=== PATIENT | female | born 1940 | race Caucasian/White ===

== ENCOUNTER 2017-06-12 11:17 | Outpatient (CLI) | payer MEDICARE ==
--- NOTE | 2017-06-12 14:23 | RAD ---
FRONTAL AND LATERAL IMAGING OF THE CHEST 06/12/17. COMPARISON: 02/12/17. HISTORY: Dyspnea. FINDINGS: There are increased linear interstitial densities in the perihilar regions as well as the peripheral aspects of the mid lung zones and bilateral lung bases, similar when compared to the 02/12/17 exam, sug gesting chronic underlying interstitial disease. There is blunting of the costophrenic angle on the right and increased density in the right lung base, best seen on the lateral examination with increas ed density in the right costophrenic angle posteriorly. The density within the right lung base appea rs to have increased since the prior exam which may signify small increasing right-sided pleural effu jose. There is a tiny apical pneumothorax on the right, similar when compared to prior imaging. IMPRESSION: 1. There is chronic interstitial prominence, grossly unchanged. 2. There is increasing density in the right lung base suggesting enlarging small right pleural effus ion. 3. Findings suggesting a tiny residual apical pneumothorax on the right. CODE T-Dr. Dejesus made aware at the time of dictation. POS: NOAM
== END 2017-06-12 11:18 | disposition home or self-care (01) ==
LOC: RAD 11:17
PROVIDERS: ATTEND Internal Medicine Critical Care Medicine
DX: R06.00 Dyspnea, unspecified (principal); J98.4 Other disorders of lung; R91.8 Other nonspecific abnormal finding of lung field
CPT/HCPCS: 71020

== ENCOUNTER 2017-08-05 12:30 | Outpatient (CLI) | payer MEDICARE | END 2017-08-05 12:31 | disposition home or self-care (01) | LOC: BICRAD 12:30 | PROVIDERS: ATTEND Internal Medicine | DX: R06.00 Dyspnea, unspecified (principal) | CPT/HCPCS: 71046 ==

== ENCOUNTER 2017-08-15 12:55 | Outpatient (CLI) | payer MEDICARE | END 2017-08-15 12:56 | disposition home or self-care (01) | LOC: BICRAD 12:55 | PROVIDERS: ATTEND Internal Medicine | DX: R07.81 Pleurodynia (principal) ==

== ENCOUNTER 2017-09-01 08:58 | Outpatient (CLI) | payer MEDICARE ==
--- NOTE | 2017-09-01 15:45 | NM ---
WHOLE BODY BONE SCAN: Date: 09/01/17 HISTORY: Malignant neoplasm right lung. Patient reports lobectomy right lung. Patient has persistent right-dione ed rib pain. COMPARISON: Bone scan on 06/21/08. FINDINGS: There is mild increased asymmetric uptake of radiotracer seen within the right shoulder and in the ri ght knee in a degenerative pattern. There is a focus of faint increased uptake seen within the anteri or right lower rib ending. This may be related to prior injury. Intensity is usually greater for a me tastatic lesion, and no additional abnormal focal areas of uptake of radiotracer are seen to suggest metastatic disease as an etiology. There is mild S-shaped scoliotic curvature of the thoracolumbar sp ine. Normal uptake is seen within the kidneys and in the region of the urinary bladder. IMPRESSION: 1. Degenerative changes right shoulder and right knee. 2. Small faint focus of increased uptake of activity within a right lower anterior rib ending, which could be related to prior injury. Intensity is less than typically expected for a metastatic lesion. There are no findings to suggest osseous metastatic disease. POS: NOAM
== END 2017-09-01 08:59 | disposition home or self-care (01) ==
LOC: NM 08:58
PROVIDERS: ATTEND Internal Medicine
DX: C34.90 Malignant neoplasm of unspecified part of unspecified bronchus or lung (principal); G89.3 Neoplasm related pain (acute) (chronic); R07.9 Chest pain, unspecified; M17.11 Unilateral primary osteoarthritis, right knee; M19.011 Primary osteoarthritis, right shoulder
CPT/HCPCS: 78306; A9503

== ENCOUNTER 2017-10-28 09:21 | Outpatient (CLI) | payer MEDICARE ==
--- NOTE | 2017-10-28 10:42 | RAD ---
PA AND LATERAL VIEWS CHEST: HISTORY: Cough. Hemoptysis. COMPARISON: 11/03/2016 FINDINGS: The heart size is borderline. The aorta is tortuous. Chronic interstitial changes are seen. No lob ar consolidation, pneumothoraces, or large effusions are identified. IMPRESSION: No acute process. POS: [facility]
== END 2017-10-28 09:22 | disposition home or self-care (01) ==
LOC: SCSRAD 09:21
PROVIDERS: ATTEND Internal Medicine
DX: R04.2 Hemoptysis (principal); J20.9 Acute bronchitis, unspecified; R06.00 Dyspnea, unspecified
CPT/HCPCS: 71046

== ENCOUNTER 2017-12-05 09:19 | Outpatient (CLI) | payer MEDICARE ==
--- NOTE | 2017-12-05 10:44 | RAD ---
PA AND LATERAL VIEWS OF CHEST: Date: 12/05/17 HISTORY: Dyspnea. FINDINGS/IMPRESSION: Comparison made with exam of 10/28/17. The heart size is normal. Chronic changes in the lung garcia are again seen. There is continued eleva tion of the right hemidiaphragm. There is increased density in the right suprahilar region. The possi bility of a mass should be considered. No pneumothoraces or pleural effusions are identified. Further evaluation with CT scan is recommended. CODE T. POS: [facility]
== END 2017-12-05 09:20 | disposition home or self-care (01) ==
LOC: RAD 09:19
PROVIDERS: ATTEND Internal Medicine Critical Care Medicine
DX: R06.00 Dyspnea, unspecified (principal)
CPT/HCPCS: 71046

== ENCOUNTER 2018-01-20 10:10 | Outpatient (CLI) | payer MEDICARE ==
--- NOTE | 2018-01-20 10:50 | RAD ---
TWO VIEWS OF THE CHEST: COMPARISON: 10/28/17. HISTORY: Dyspnea. FINDINGS: Two views of the chest show an enlarged but stable cardiomediastinal silhouette. Increased interstit ial lung markings are present. There are areas of airspace opacity in the right suprahilar region an d in the left lower lobe. No pleural effusion is seen. IMPRESSION: 1. Persistent airspace opacity in the right suprahilar region. A mass must be excluded. A CT of th e chest is recommended for further evaluation. 2. Possible new left lower lobe infiltrate. CODE T POS: [facility]
== END 2018-01-20 10:11 | disposition home or self-care (01) ==
LOC: RAD 10:10
PROVIDERS: ATTEND Internal Medicine Critical Care Medicine
DX: R06.00 Dyspnea, unspecified (principal); R91.8 Other nonspecific abnormal finding of lung field
CPT/HCPCS: 71046

== ENCOUNTER 2018-01-29 12:46 | Inpatient (IN) | payer MEDICARE ==
[2018-01-29 13:13] LABS: #Lymphocytes 0.8 thou/uL (1.20-3.40); #Monocytes 0.6 thou/uL (0.11-0.59); #Neutrophils 7.3 thou/uL (1.40-6.50); %Basophils 0.2 % (0.0-1.0); %Eosinophils 0.4 % (0.0-10.0); %Monocytes 6.6 % (0.0-10.0); %Neutrophils 83.9 % (42.0-75.0); Hemoglobin 12.1 g/dL (12.0-16.0); Mean Corpuscular Hemoglobin 30.9 pg (27.0-31.0); Mean Corpuscular Volume 93.7 fL (78.0-98.0); Mean Platelet Volume 7.1 fL (7.4-10.4); Platelet Count 257 thou/uL (130-400); RBC Distribution Width 13.9 % (11.5-14.5); White Blood Cell (WBC) Count 8.7 thou/uL (4.8-10.8)
[2018-01-29 13:37] LABS: CKMB 5.3 ng/mL (0-6.6)
[2018-01-29 13:48] LABS: Troponin I 1.185 ng/mL (< 0.028)
--- NOTE | 2018-01-29 13:51 | RAD ---
CHEST ONE VIEW: HISTORY: Cough. COMPARISON: 01/20/2018 FINDINGS: There are abnormal opacities in the left lower lobe and right upper lobe. This is similar to the [facility] examination. There is low grade dextroscoliosis. The aortic contour is similar. IMPRESSION: Air space opacities in the left lower lobe and right upper lobe. These are similar to slightly worse rosmery. A multifocal abnormality is a possibility. A right upper lobe mass is also possible. Recommen d correlation with CT. POS: NOAM
[2018-01-29] MEDS ORDERED: methylPREDNISolone Sod Succ/PF 125 MG/2 ML VIAL ONE (14:05)
[2018-01-29] MEDS ORDERED: Magnesium Sulfate 2 GM in Sodium Chloride 0.9% 100 ML IVPB SCH (14:15)
[2018-01-29 14:25] LABS: ALT (SGPT) 762 U/L (8-55); AST (SGOT) 1365 U/L (5-34); Albumin 3.4 g/dL (3.4-4.8); Alkaline Phosphatase 98 U/L (40-150); Anion Gap 13 mmol/L (10-20); BUN (Urea Nitrogen) 20 mg/dL (9.8-20.1); Bilirubin, Total 0.6 mg/dL (0.2-1.2); CK (CPK) 305 U/L (29-168); Calc. Creatinine Clearance 0 mL/min (70-130); Calcium 8.5 mg/dL (7.8-10.44); Carbon Dioxide 22 mmol/L (23-31); Chloride 107 mmol/L (98-107); Estimated GFR-MDRD 42; Globulin 2.7 g/dL (2.4-3.5); Glucose 110 mg/dL (83-110); Potassium 4.5 mmol/L (3.5-5.1); Protein, Total 6.1 g/dL (6.0-8.3); Sodium 137 mmol/L (136-145)
[2018-01-29 14:56] LABS: Bilirubin Small (Negative); Blood, Urine Negative (Negative); Clarity CLEAR (Clear); Glucose, Urine (Dipstick) Negative (Negative); Leukocyte Negative (Negative); Nitrite Negative (Negative); Protein, Urine (Dipstick) Negative (Neg-Trace); Specific Gravity, Urine 1.044 (1.002-1.036); pH, Urine 5.5 (5.0-9.0)
[2018-01-29 17:00] LABS: Critical Call Chem Troponin I RESULT DECREASING; Troponin I 0.716 ng/mL (< 0.028)
[2018-01-29 17:55] VITALS: BMI 28.6
[2018-01-29] MEDS ORDERED: Guaifenesin DM 100-10/5 ML UDCUP PO PRN (18:02)
[2018-01-29] MEDS ORDERED: HYDROcodone/Acetaminophen 5/325 mg Tablet PO PRN (18:02)
--- NOTE | 2018-01-29 18:37 | HP ---
DATE OF ADMISSION: 01/29/2018 CHIEF COMPLAINT: Weakness and shortness of breath. HISTORY OF PRESENT ILLNESS: This is a 77-year-old white female with a known history of adenocarcinom a of the right lung and had a lower lobe resection in 10/2016 and has been closely following up with Dr. Dejesus. The patient has recently been noticing that she has been getting weaker and weaker since last August wherein she was admitted for pneumonia. Following discharge, the patient was getting w eaker and she has been having close followup with Dr. Dejesus, who had a recent CT with IV contrast. C T chest with IV contrast, which did show an evidence of a new growth from the old malignancy. The jamee alexandre was scheduled for a PET scan later next week, but during this time she is getting weaker and wa s having severe shortness of breath, and she was brought to the ER. When the patient presented to e ER, she had saturations in 80s and her blood pressures were in 88. So, the patient was given 1 lit er of IV fluid bolus and she was given nebulizer treatments, which did help her a little bit. Her re spirations rate improved and she was saturating 90% on 2 liters. She does complain of chest pain a f ew days ago, which she ignored it as a gas pain. She complains of pain on the mid epigastric area go ing toward the sternum. She denies having any nausea or vomiting, diarrhea or constipation. She den ies having any loss of appetite or any loss of weight. She denies having any constipation, no diarrh ea. PAST MEDICAL HISTORY: 1. Gastroesophageal reflux disease. 2. Degenerative joint disease. 3. Hyperlipidemia. 4. History of atrial fibrillation. 5. 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 PAST SURGICAL HISTORY: 1. Bilateral cataract surgery. 2. Appendectomy. 3. Tonsillectomy. 4. Recent right lower lobectomy. HOME MEDICATIONS: Have been reconciled. Please see the medication list. ALLERGIES: CODEINE, AMOXICILLIN, LASIX, and LYRICA. SOCIAL HISTORY: The patient is a former cigarette smoker. She drinks a cup of coffee a day. She li ves with her daughter. REVIEW OF SYSTEMS: All 12 systems are reviewed with the patient thoroughly and found to be negative at this time except the ones described in HPI. The following complete review of systems was negative , unless otherwise mentioned in the HPI or below: Constitutional: Weight loss or gain, sense of wel l-being, ability to conduct usual activities, exercise tolerance. Skin/Breast: Rash, itching, sarkar es in hair growth or loss, nail changes, breast lumps, tenderness, swelling, nipple discharge. Eyes: Vision, double vision, tearing, blind spots, pain. ENT/Mouth: Headaches (location, time of onset, duration, precipitating factors), vertigo, lightheadedness, injury. Vision, double vision, tearing, blind spots, pain, nose bleeding, colds, obstruction, discharge, dental difficulties, gingival bleedi ng, dentures, neck stiffness, pain, tenderness, masses in thyroid or other areas. Cardiovascular: P recordial pain, substernal distress, palpitations, syncope, dyspnea on exertion, orthopnea, nocturnal paroxysmal dyspnea, edema, cyanosis, hypertension, heart murmurs, varicosities, phlebitis, claudicat ion. Respiratory: Pain, shortness of breath, wheezing, stridor, cough, hemoptysis, fever or night s weats. Gastrointestinal: Poor appetite, dysphagia, indigestion, abdominal pain, heartburn, eructati on, nausea, vomiting, hematemesis, jaundice, constipation, or diarrhea, abnormal stools (renu-colored , tarry, bloody, greasy, foul smelling), flatulence, hemorrhoids, recent changes in bowel habits. Ge nitourinary: Urgency, frequency, dysuria, nocturia, hematuria, polyuria, oliguria, unusual (or sarkar e in) color of urine, stones, hesitancy, change in size of stream, dribbling, acute retention or inco ntinence, libido, potency. Musculoskeletal: Pain, swelling, redness or heat of muscles or joints, l imitation, of motion, muscular weakness, atrophy, cramps. Neurologic/Psychiatric: Convulsions, para lyses, tremor, incoordination, paresthesias, difficulties with memory of speech, sensory or motor dis turbances, or muscular coordination (ataxia, tremor), emotional problems, anxiety, depression, previo us psychiatric care, unusual perceptions, hallucinations. Allergy/Immunologic: Skin rash, anemia, b leeding tendency, polydipsia, polyuria, intolerance to heat or cold. PHYSICAL EXAMINATION: VITAL SIGNS: Blood pressures are 110/88, heart rate is 88, respiratory rate is 18, saturation is 90% on 2 liters nasal cannula. GENERAL: The patient is moderately built and moderately nourished. She does not appear to be in acu te distress at this time. She is seen lying in the bed supine. HEENT: Atraumatic, normocephalic. PERRLA, extraocular muscles were intact. Oral mucosa is pink and moist. CARDIOVASCULAR: S1, S2 normal. No murmurs, rubs or gallops. LUNGS: Bilateral air entry was equal. No wheezing, no crackles. ABDOMEN: Soft, nontender. No guarding, no rebound tenderness. Bowel sounds are normal. MUSCULOSKELETAL: No calf tenderness. No pedal edema. No joint tenderness, no joint swelling. SKIN: No cyanosis, no erythema, no rash. Pallor was noted. PSYCHIATRIC: No signs of suicidal ideation. No signs of burak. [employer]: Cranial nerve examination II-XII intact. No focal deficits were noted at this time. LABORATORY DATA AND IMAGING: Sodium 137, potassium 4.5, chloride is 107, bicarbonate is 22, BUN is 2 0, creatinine 1.24. Blood sugar 110, AST 1365, ALT 762, troponin 1.185. BNP is 964. WBC 8.7, hemog lobin is 12.1, hematocrit is 36.6, platelets are 257. Chest x-ray was showing an airspace opacity in the left lower lobe and the right upper lobe. These are similar slightly worsened multifocal abnorm alities possibility. ASSESSMENT: 1. Acute hypoxic respiratory failure. 2. Acute congestive heart failure, likely diastolic dysfunction. 3. Non ST-elevation myocardial infarction. 4. History of adenocarcinoma of the right lower lobe, possible recurrence. 5. Generalized weakness and lethargy. 6. Elevated liver enzymes. PLAN: 1. Plan is to closely monitor this patient at this time. We will continue with the nebulizer treatm ents as needed and DuoNebs every 4 hours scheduled. Pulmonary has been consulted. We will wait for their recommendations at this time. The patient do not have any evidence of pneumonia at this time, so I would not start any antibiotics unless Pulmonary would want to at this time. 2. The patient has evidence of regrowth of the adenocarcinoma and Dr. Dejesus has been following. The patient has a pending PET scan later next week. 3. The patient has elevated troponins, most likely this could be a demand ischemia, but the patient has elevated BNP which is suggestive of congestive heart failure. So, we will get a 2D echo to look for any evidence of wall motion abnormality. We will start the patient on aspirin and beta blockers and evaluate cardiac causes for her weakness and lethargy. 4. The patient has markedly elevated liver enzymes with a normal alkaline phosphatase, possibly sugg estive of possible metastatic lesions. So, we will get an ultrasound of the abdomen to look for any masses on the liver. 5. DVT prophylaxis. The patient is on Xarelto. 6. The patient has history of atrial fibrillation. We will continue with anticoagulation at this ti me. I spent 75 minutes with this patient.
[2018-01-29 20:03] LABS: Troponin I 0.746 ng/mL (< 0.028)
[2018-01-29] MEDS ORDERED: Carvedilol 3.125 MG TAB PO SCH (21:00)
[2018-01-29] MEDS: Gabapentin 300 MG CAP PO SCH (21:34)
[2018-01-29] MEDS: Famotidine/PF 20 mg/2ml Vial SLOW IVP SCH (21:34)
[2018-01-29] MEDS: Sotalol HCl 80 MG TAB PO SCH (21:34)
[2018-01-29] MEDS: Docusate 100 MG CAP PO SCH (21:34)
[2018-01-29] MEDS: Apixaban 5 MG TAB PO SCH (21:34)
[2018-01-29] MEDS: guaiFENesin ER 600 MG TAB PO SCH (21:35)
[2018-01-30] MEDS: HYDROcodone/Acetaminophen 10/325 mg Tablet PO PRN ×2 (04:28→21:10)
[2018-01-30 05:33] LABS: #Lymphocytes 0.5 thou/uL (1.20-3.40); #Monocytes 0.3 thou/uL (0.11-0.59); #Neutrophils 5.4 thou/uL (1.40-6.50); %Basophils 0.2 % (0.0-1.0); %Eosinophils 0.1 % (0.0-10.0); %Lymphocytes 8.2 % (21.0-51.0); %Monocytes 4.7 % (0.0-10.0); %Neutrophils 86.8 % (42.0-75.0); Hemoglobin 11.2 g/dL (12.0-16.0); Mean Corpuscular HGB CONC 33.2 g/dL (32.0-36.0); Mean Corpuscular Volume 93.5 fL (78.0-98.0); Mean Platelet Volume 7.4 fL (7.4-10.4); Platelet Count 212 thou/uL (130-400); RBC Distribution Width 13.8 % (11.5-14.5); Red Blood Cell (RBC) Count 3.61 mill/uL (4.20-5.40); White Blood Cell (WBC) Count 6.2 thou/uL (4.8-10.8)
[2018-01-30] MEDS: Furosemide 20 MG/2 ML VIAL SLOW IVP SCH ×2 (05:36→14:17)
[2018-01-30 05:48] LABS: ALT (SGPT) 656 U/L (8-55); AST (SGOT) 619 U/L (5-34); Albumin 3.7 g/dL (3.4-4.8); Alkaline Phosphatase 107 U/L (40-150); Anion Gap 13 mmol/L (10-20); BUN (Urea Nitrogen) 22 mg/dL (9.8-20.1); Bilirubin, Total 0.5 mg/dL (0.2-1.2); Calc. Creatinine Clearance 69 mL/min (70-130); Calcium 8.8 mg/dL (7.8-10.44); Carbon Dioxide 20 mmol/L (23-31); Cardiac Risk 4.5 (Less than 4.5); Chloride 107 mmol/L (98-107); Cholesterol 193 mg/dl (< 200 Desired); Estimated GFR-MDRD 70; Globulin 2.8 g/dL (2.4-3.5); Glucose 146 mg/dL (83-110); HDL Cholesterol 43 mg/dL (>60 Neg Risk); LDL Cholesterol, Calculated 133 mg/dL; Potassium 4.2 mmol/L (3.5-5.1); Protein, Total 6.5 g/dL (6.0-8.3); Sodium 136 mmol/L (136-145); Triglycerides 85 mg/dL (Less than 150)
[2018-01-30] MEDS: Mometasone/Formoterol 120 PUFF INHALER INH SCH ×2 (07:14→19:36)
[2018-01-30] MEDS: guaiFENesin ER 600 MG TAB PO SCH ×2 (08:31→21:08)
[2018-01-30] MEDS: Lisinopril 2.5 MG TAB PO SCH (08:31)
[2018-01-30] MEDS: Docusate 100 MG CAP PO SCH ×2 (08:31→21:08)
[2018-01-30] MEDS: Apixaban 5 MG TAB PO SCH (08:31)
[2018-01-30] MEDS: Sotalol HCl 80 MG TAB PO SCH ×2 (08:32→21:09)
--- NOTE | 2018-01-30 08:36 | ULT ---
ABDOMINAL ULTRASOUND: DATE: 05/02/18. HISTORY: Elevated liver enzymes in a patient with abdominal pain. FINDINGS: No gallbladder calculi are visualized. However, there is a focal area of mild gallbladder wall thick ening predominantly involving the wall of the gallbladder adjacent to the liver which measures 0.35 c m. There is a small amount of pericholecystic fluid as well. The common duct is normal in caliber m easuring 0.5 cm in diameter. The liver, visualized portions of the pancreas, abdominal aorta, visualized portions of the IVC, sple en, and bilateral kidneys demonstrate a normal sonographic appearance. The right kidney measures 9.8 cm in length with the left kidney measuring 9.3 cm in length. IMPRESSION: 1. Gallbladder wall thickening predominantly involving the gallbladder wall adjacent to the liver wi th a small amount of pericholecystic fluid. No gallbladder calculi are seen. Findings may be relate d to cholecystitis in the appropriate clinical scenario. Hepatobiliary study may be helpful for furt her evaluation. The gallbladder had a normal appearance on a right upper quadrant ultrasound exam on 11/04/16. 2. The common duct is normal in caliber. POS: NOAM
[2018-01-30] MEDS ORDERED: Prevnar 13-Val Conj/PF 0.5 ML SYRINGE IM ONE (09:00)
--- NOTE | 2018-01-30 09:00 | CON ---
DATE OF CONSULTATION: 01/29/2018 HISTORY: Ms. 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 This was resected. She was recently diagnosed with pneumonia. Her radiograph failed to clear. CT scanning suggestive of extensive recurrence of tumor with a large right upper lobe mass, mediastinal lymphadenopathy and multiple nodules in her left lung. She is scheduled for PET imaging next week. She basically was admitted today with nausea and failure to thrive. She has had poor p.o. intake intermittently but says she is drinking plenty of water. She is losing weight and getting progressively weaker. PAST MEDICAL HISTORY: Remarkable for, 1. lipid disorder. 2. Atrial fibrillation. 3. Postop pneumonia with acute respiratory distress syndrome after her lobectomy. 4. Cataract surgery. 5. Appendectomy. 6. Tonsillectomy. 7. History of a thoracotomy lobectomy. Her daughter fired the surgeon when the surgeon refused to "quit taking care of her." She reached to a point several days after surgery where she said "I just wanna and I want everyone to leave me alone." Dr. Dinh felt it would not be appropriate to quit caring for her after a lobectomy and the daughter became frustrated and fired him. I took care of her after that, somehow was able to gingerly get her out of the hospital. She did at that time request to be a DO NOT RESUSCITATE patient. She says now that she is willing to undergo some type of therapy if we found a recurrence of her malignancy which I suspect she has. FAMILY HISTORY: Negative for lung disease in early age. SOCIAL HISTORY: She is certainly not smoking or drinking at this time. REVIEW OF SYSTEMS: 10 point system review completed, otherwise negative. ALLERGIES: She has allergies to PENICILLIN, CODEINE, METAXALONE, and PREGABALIN. PHYSICAL EXAMINATION: GENERAL: She is afebrile, heart rate 73, respiratory rate 16, oximetry is 93 on 2 liters. HEENT: Pupils are equal. Sclerae anicteric. Extraocular movements full. NECK: Supple. LUNGS: Clear with exception of crackles at her right base. HEART: Regular rhythm, no S3. ABDOMEN: Soft and nontender. EXTREMITIES: No clubbing, cyanosis, or edema. LABORATORY DATA: When she came to the office at the beginning of this week, she came in a wheelchair and she has not done that in a long time, white count 8.7, hemoglobin 12.1, platelets 257. Sodium 137, potassium 4.5, chloride 107, bicarbonate 22, BUN 20, creatinine 1.24, AST has gone from 41 two months ago to 1365, ALT has gone from 127 to 162. 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 She has been falling lately. It is hard to know whether the following secondary to weakness or central nervous system lesion. She has equivocal Babinski reflexes. I have recommended magnetic resonance imaging. I would probably should proceed with a CT-guided lung biopsy while she is here as well which I have discussed with her and her daughter. This is a 50-minute consult with greater than 50% of the time was spent on the unit coordinating care. WIL
[2018-01-30] MEDS: Albuterol Sulfate 2.5 mg/3 ml Neb NEB PRN ×2 (12:17→21:26)
--- NOTE | 2018-01-30 12:40 | PRG ---
DATE OF SERVICE: 01/30/2018 HISTORY: Ms. Lund says she feels better. She is very talkative today, much more talkative that pedro ledesma was in the office earlier in the week. PHYSICAL EXAMINATION: VITAL SIGNS: Heart rate 60, blood pressure is mildly elevated 177/81, respiratory rate 16, oximetry is 96 on 2 liters. LUNGS: Clear. HEART: Regular rhythm. ABDOMEN: Soft. EXTREMITIES: Without asymmetry. She does not have any guarding in the right upper quadrant. Ultrasound done for elevated liver enzym es shows thickened gallbladder wall. LABORATORY DATA: White count 6.2, hemoglobin 11.2, platelets 212. Sodium 136, potassium 4.2, chloride 107, bicarbonate 20, BUN 22, creatinine 0.79, AST has gone from 1 365 to 619, ALT has gone from 762 to 656. IMPRESSION: 1. Failure to thrive. 2. Borderline troponin. I discussed with Dr. Maldonado and she does not feel any cardiac workup is indic ated. 3. Probable recurrent bronchoalveolar carcinoma (mucinous adenocarcinoma of the lung, status post ri ght lower lobectomy). She has mediastinal and bilateral lung disease. 4. Elevated liver enzymes ? cholecystitis versus intravascular volume depletion. 5. Intravascular volume depletion on presentation. In spite of her claims that she drinks water all day long, her creatinine has gone from 1.24 to 0.79. She will be moved to a medical bed. We are awaiting MRI of her brain. We will also set her up for a CT-guided lung biopsy while she is here. Unfortunately, her prognosis is quite poor to guarded.
--- NOTE | 2018-01-30 14:32 | PDOC.PN ---
- Subjective Encounter Start Date: 01/30/18 Encounter Start Time: 11:00 PAtient is seen today, alert and oiented. She started to Choke on eating a stake , and She does have pain in her right upper quadrant for long time, but her previous scan were normal. - Objective Resuscitation Status: Resuscitation Status FULL:Full Resuscitation MAR Reviewed: Yes Vital Signs & Weight: Vital Signs (12 hours) Temp Pulse Pulse Pulse Resp BP BP 01/30/18 14:08 66 18 01/30/18 12:17 65 18 01/30/18 10:30 66 70 168/77 H 01/30/18 10:28 67 16 01/30/18 08:32 72 177/81 H 01/30/18 08:31 72 177/81 H 01/30/18 08:00 97.6 F 72 20 01/30/18 07:51 97.6 F 72 18 01/30/18 07:19 76 16 01/30/18 07:14 76 16 01/30/18 04:25 97.9 F 73 20 BP BP Pulse Ox 01/30/18 14:08 90 L 01/30/18 12:17 92 L 01/30/18 10:30 169/75 H 01/30/18 10:28 96 01/30/18 08:32 01/30/18 08:31 01/30/18 08:00 96 01/30/18 07:51 177/81 H 96 01/30/18 07:19 93 L 01/30/18 07:14 93 L 01/30/18 04:25 173/86 H 98 Weight Weight 166 lb 4.8 oz Result Diagrams: 01/30/18 04:17 01/30/18 04:17 Radiology Reviewed by me: Yes Phys Exam - Physical Examination HEENT: PERRLA, moist MMs Neck: no nodes, no JVD Respiratory: no wheezing, no rales Cardiovascular: RRR, no significant murmur Gastrointestinal: soft, non-tender Musculoskeletal: no edema, pulses present Neurological: non-focal, normal sensation Lymphatic: no nodes Psychiatric: normal affect Skin: no rash Dx/Plan (1) Acute cholecystitis Code(s): K81.0 - ACUTE CHOLECYSTITIS Status: Acute Comment: PAtient has US evaidence of thinckened gallbladr Wall, Pecholecystic fluid, recommeding HIDA scan (2) Aspiration pneumonia due to regurgitated food Code(s): J69.0 - PNEUMONITIS DUE TO INHALATION OF FOOD AND VOMIT Status: Acute Comment: Pt choked while Eating Steak, Will keep NPO.IV flagyl will add. Will get speech evaalution, Will do Neb treatments. (3) Acute respiratory failure with hypoxia Code(s): J96.01 - ACUTE RESPIRATORY FAILURE WITH HYPOXIA Status: Acute Comment: COntinue Oxygen high flow now. (4) NSTEMI (non-ST elevated myocardial infarction) Code(s): I21.4 - NON-ST ELEVATION (NSTEMI) MYOCARDIAL INFARCTION Status: Acute Comment: Ruled out By Dr. Maldonado, likely Demand Ischemia. - Plan cont current plan of care, continue antibiotics, PT/OT, psychologist social, incentive spirometry, out of bed/ambulate, DVT proph w/lovenox * . Review of Systems - Review of Systems Eyes: negative: Pain, Vision Change, Conjunctivae Inflammation, Eyelid Inflammation, Redness, Other ENT: negative: Ear Pain, Ear Discharge, Nose Pain, Nose Discharge, Nose Congestion, Mouth Pain, Mouth Swelling, Throat Pain, Throat Swelling, Other Respiratory: negative: Cough, Dry, Shortness of Breath, Hemoptysis, SOB with Excertion, Pleuritic Pain, Sputum, Wheezing Cardiovascular: negative: chest pain, palpitations, orthopnea, paroxysmal nocturnal dyspnea, edema, light headedness, other Gastrointestinal: negative: Nausea, Vomiting, Abdominal Pain, Diarrhea, Constipation, Melena, Hematochezia, Other Genitourinary: negative: Dysuria, Frequency, Incontinence, Hematuria, Retention , Other Musculoskeletal: negative: Neck Pain, Shoulder Pain, Arm Pain, Back Pain, Hand Pain, Leg Pain, Foot Pain, Other - Medications/Allergies Allergies/Adverse Reactions: Allergies Allergy/AdvReac Type Severity Reaction Status Date / Time codeine Allergy Severe CP, SOB Verified 10/24/16 20:24 pregabalin [From Lyrica] Allergy depression Verified 10/24/16 20:24 and confusion Medications: Current Medications Acetaminophen (Tylenol) 650 mg PO Q4H PRN PRN Reason: Headache/Fever or Pain Hydrocodone Bitart/Acetaminophen ([place] 5/325) 1 tab PO Q4H PRN PRN Reason: Moderate Pain (4-6) Hydrocodone Bitart/Acetaminophen ([place] 10/325) 1 tab PO Q6H PRN PRN Reason: Severe Pain (7-10) Last Admin: 01/30/18 04:28 Dose: 1 tab Albuterol Sulfate (Ventolin) 2.5 mg NEB Q2H PRN PRN Reason: Wheezing Last Admin: 01/30/18 12:17 Dose: 2.5 mg Albuterol/Ipratropium (Duoneb) 3 ml NEB [id number] Last Admin: 01/30/18 14:08 Dose: 3 ml Apixaban (Eliquis) 5 mg PO BID [facility] Last Admin: 01/30/18 08:31 Dose: 5 mg Aspirin (Aspirin Chewable) 81 mg PO DAILY [facility] Last Admin: 01/30/18 08:31 Dose: 81 mg Docusate Sodium (Colace) 100 mg PO BID [facility] Last Admin: 01/30/18 08:31 Dose: 100 mg Famotidine (Pepcid) 20 mg SLOW IVP 2100 [facility] Last Admin: 01/29/18 21:34 Dose: 20 mg Furosemide (Lasix) 20 mg SLOW IVP 0600,1400 [facility] Last Admin: 01/30/18 14:17 Dose: 20 mg Gabapentin (Neurontin) 600 mg PO HS [facility] Last Admin: 01/29/18 21:34 Dose: 600 mg Guaifenesin (Mucinex) 1,200 mg PO Q12HR [facility] Last Admin: 01/30/18 08:31 Dose: 1,200 mg Guaifenesin/Dextromethorphan (Robitussin Dm) 15 ml PO Q4H PRN PRN Reason: Cough Lisinopril (Zestril) 2.5 mg PO DAILY [facility] Last Admin: 01/30/18 08:31 Dose: 2.5 mg Mometasone Furoate/Formoterol Fumar (Dulera 200 Mcg/5 Mcg Inhaler) 1 puff INH BID-RT [facility] Last Admin: 01/30/18 07:14 Dose: 1 puff Sotalol HCl (Betapace) 40 mg PO BID [facility] Last Admin: 01/30/18 08:32 Dose: 40 mg
--- NOTE | 2018-01-30 15:00 | MRI ---
MRI BRAIN WITH AND WITHOUT CONTRAST: DATE: 01-30-18 HISTORY: 77-year-old female with lung cancer. Evaluate for brain metastasis. TECHNIQUE: Multiple sequences obtained in axial, sagittal, and coronal planes; pre and post IV injection of gado linium-based contrast agent: 7 ml MultiHance (for reduced GFR of 42). FINDINGS: The ventricles are normal in size and configuration. There is no restricted diffusion, abnormal intr aaxial enhancement, mass, midline shift or any other mass effect, recent intraaxial hemorrhage, or ex traaxial fluid collection. There are a several scattered small T2-hyperintensities in the cerebral wh ite matter consistent with mild chronic ischemic white matter changes due to mild microvascular ather osclerosis. IMPRESSION: 1. Mild chronic ischemic white matter changes. 2. Otherwise negative. 3. No brain metastasis. jn[] POS: NOAM
[2018-01-30] MEDS: Gabapentin 300 MG CAP PO SCH (21:08)
[2018-01-30] MEDS: Famotidine/PF 20 mg/2ml Vial SLOW IVP SCH (21:08)
[2018-01-31] MEDS: Furosemide 20 MG/2 ML VIAL SLOW IVP SCH ×2 (05:44→13:18)
[2018-01-31] MEDS: HYDROcodone/Acetaminophen 10/325 mg Tablet PO PRN ×3 (07:18→20:45)
[2018-01-31] MEDS: Mometasone/Formoterol 120 PUFF INHALER INH SCH ×2 (07:37→19:04)
[2018-01-31] MEDS: guaiFENesin ER 600 MG TAB PO SCH ×2 (09:54→20:44)
[2018-01-31] MEDS: Sotalol HCl 80 MG TAB PO SCH (09:54)
[2018-01-31] MEDS: Docusate 100 MG CAP PO SCH ×2 (09:54→20:45)
[2018-01-31] MEDS: Lisinopril 2.5 MG TAB PO SCH (09:54)
[2018-01-31] MEDS ORDERED: Gabapentin 300 MG CAP PO SCH (11:15)
[2018-01-31] MEDS ORDERED: Melatonin 3 MG TAB PO PRN (11:56)
[2018-01-31] MEDS ORDERED: predniSONE 20 MG TAB PO SCH (12:30)
[2018-01-31] MEDS: Piperacillin/Tazobactam 3.375 GM in Sodium Chloride 0.9% 100 ML IVPB SCH ×2 (13:18→17:28)
[2018-01-31] MEDS ORDERED: Bupropion 150 MG XL TAB PO SCH (13:30)
[2018-01-31 14:43] LABS: ALT (SGPT) 456 U/L (8-55); AST (SGOT) 211 U/L (5-34); Albumin 3.6 g/dL (3.4-4.8); Alkaline Phosphatase 105 U/L (40-150); Anion Gap 14 mmol/L (10-20); BUN (Urea Nitrogen) 21 mg/dL (9.8-20.1); Bilirubin, Total 0.7 mg/dL (0.2-1.2); Calc. Creatinine Clearance 77 mL/min (70-130); Calcium 9.2 mg/dL (7.8-10.44); Carbon Dioxide 25 mmol/L (23-31); Chloride 104 mmol/L (98-107); Estimated GFR-MDRD 81; Globulin 3.2 g/dL (2.4-3.5); Glucose 103 mg/dL (83-110); Magnesium 2.3 mg/dL (1.6-2.6); Potassium 3.4 mmol/L (3.5-5.1); Protein, Total 6.8 g/dL (6.0-8.3); Sodium 140 mmol/L (136-145)
[2018-01-31] MEDS ORDERED: Potassium Chloride 20 MEQ TAB PO SCH ×2 (17:00→19:30)
[2018-01-31] MEDS: Acetaminophen 325 MG TAB PO PRN (17:28)
--- NOTE | 2018-01-31 17:45 | PRG ---
DATE OF SERVICE: 01/31/2018 SUBJECTIVE: She is better. She is less short of breath. She is weak. Dr. Dejesus has scheduled her for a CT-guided biopsy. OBJECTIVE: VITAL SIGNS: Sats are 90% on 2 liters, temperature 98, blood pressure is 108/51. CHEST: Decreased breath sounds without any wheezing. CARDIAC: Normal S1 and S2, no gallops. ABDOMEN: Soft. IMPRESSION: Recurrent bronchoalveolar carcinoma, right lung showing a new right upper lung mass den sity. PLAN: Continue neb treatments, supportive care, antibiotics, steroids. Await biopsy.
--- NOTE | 2018-01-31 19:34 | PDOC.PN ---
- Subjective Encounter Start Date: 01/31/18 Encounter Start Time: 11:00 Patient seen and examined for Resp failure/? Acute cholecystitis. No new complaints. Refused HIDA scan. No overnight events - Objective Resuscitation Status: Resuscitation Status FULL:Full Resuscitation MAR Reviewed: Yes Vital Signs & Weight: Vital Signs (12 hours) Temp Pulse Resp BP BP Pulse Ox 01/31/18 19:06 93 L 01/31/18 19:04 93 L 01/31/18 16:42 67 16 01/31/18 12:15 68 12 92 L 01/31/18 12:13 98.1 F 66 18 108/51 L 91 L 01/31/18 09:54 86 132/61 01/31/18 07:41 88 L 01/31/18 07:37 86 18 Weight Weight 164 lb 12.8 oz Result Diagrams: 01/30/18 04:17 01/31/18 13:51 Radiology Reviewed by me: Yes (CXR - lung mass, RUQ USG - ?Cholecystitis) EKG Reviewed by me: Yes (Tele SR, Aflutter earlier) Phys Exam - Physical Examination Constitutional: NAD Respiratory: no wheezing, no rhonchi B/L rales at bases Cardiovascular: RRR, no rub Gastrointestinal: soft, non-tender, positive bowel sounds Musculoskeletal: edema present (1 +) Dx/Plan - Plan DVT proph w/SCDs IMPRESSION: Gen weakness Acute on chronic diastolic HF Elevated troponins due to CHF Abn LFTs ?Acute Cholecystitis - Pt refused HIDA scan h/o Lung Ca s/p lobectomy with 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 - on hold for lung biopsy Atrial flutter with RVR - converted to SR Anxiety/Depression HTN Hypokalemia Chronic steroid use PLAN: Await Lung biopsy AM labs Replace Potassium Cont diuretics Resume Gabapentin, Zoloft, Wellbutrin and Prednisone Cont other meds as below Cont low dose Lisinopril Start Zosyn for possible Cholecystitis Review of Systems - Review of Systems Constitutional: negative: fever, chills, sweats, weakness, malaise, other Respiratory: Cough, Dry Cardiovascular: negative: chest pain, palpitations, orthopnea, paroxysmal nocturnal dyspnea, edema, light headedness, other - Medications/Allergies Allergies/Adverse Reactions: Allergies Allergy/AdvReac Type Severity Reaction Status Date / Time codeine Allergy Severe CP, SOB Verified 10/24/16 20:24 pregabalin [From Lyrica] Allergy depression Verified 10/24/16 20:24 and confusion Medications: Current Medications Acetaminophen (Tylenol) 650 mg PO Q4H PRN PRN Reason: Headache/Fever or Pain Last Admin: 01/31/18 17:28 Dose: 650 mg Hydrocodone Bitart/Acetaminophen ([place] 5/325) 1 tab PO Q4H PRN PRN Reason: Moderate Pain (4-6) Hydrocodone Bitart/Acetaminophen ([place] 10/325) 1 tab PO Q6H PRN PRN Reason: Severe Pain (7-10) Last Admin: 01/31/18 13:17 Dose: 1 tab Albuterol Sulfate (Ventolin) 2.5 mg NEB Q2H PRN PRN Reason: Wheezing Last Admin: 01/30/18 21:26 Dose: 2.5 mg Albuterol/Ipratropium (Duoneb) 3 ml NEB [id number] [facility] Last Admin: 01/31/18 19:06 Dose: 3 ml Albuterol/Ipratropium (Duoneb) 3 ml NEB [id number] PRN PRN Reason: SOB &/or Wheezing Bupropion HCl (Wellbutrin Xl) 300 mg PO DAILY [facility] Docusate Sodium (Colace) 100 mg PO BID [facility] Last Admin: 01/31/18 09:54 Dose: 100 mg Famotidine (Pepcid) 20 mg PO BID [facility] Furosemide (Lasix) 20 mg SLOW IVP 0600,1400 [facility] Last Admin: 01/31/18 13:18 Dose: 20 mg Gabapentin (Neurontin) 600 mg PO HS [facility] Last Admin: 01/30/18 21:08 Dose: 600 mg Gabapentin (Neurontin) 300 mg PO DAILY [facility] Guaifenesin (Mucinex) 1,200 mg PO Q12HR [facility] Last Admin: 01/31/18 09:54 Dose: 1,200 mg Guaifenesin/Dextromethorphan (Robitussin Dm) 15 ml PO Q4H PRN PRN Reason: Cough Piperacillin Sod/Tazobactam (Sod 3.375 gm/ Sodium Chloride) 100 mls @ 200 mls/ hr IVPB Q6HR [facility] Last Admin: 01/31/18 17:28 Dose: 100 mls Lisinopril (Zestril) 2.5 mg PO DAILY [facility] Last Admin: 01/31/18 09:54 Dose: 2.5 mg Lorazepam (Ativan) 0.5 mg PO Q6HR PRN PRN Reason: Anxiety Melatonin (Melatonin) 3 mg PO HS PRN PRN Reason: Insomnia Miscellaneous Medication (Pharmacy To Dose) 1 each IVPB ONE PRN PRN Reason: Pharmacy to dose Stop: 03/02/18 10:46 Mometasone Furoate/Formoterol Fumar (Dulera 200 Mcg/5 Mcg Inhaler) 1 puff INH BID-RT [facility] Last Admin: 01/31/18 19:04 Dose: 1 puff Potassium Chloride (K-Dur) 20 meq PO BID-WM [facility] Potassium Chloride (K-Dur) 20 meq PO ONE [facility] Prednisone (Prednisone) 5 mg PO QAM-WM [facility] Saccharomyces Boulardii (Florastor) 250 mg PO DAILY [facility] Sertraline HCl (Zoloft) 100 mg PO DAILY [facility] Sotalol HCl (Betapace) 40 mg PO BID [facility] Last Admin: 01/31/18 09:54 Dose: 40 mg
[2018-01-31] MEDS: Gabapentin 300 MG CAP PO SCH (20:45)
[2018-01-31] MEDS: Famotidine 20 MG TAB PO SCH (20:46)
[2018-01-31] MEDS ORDERED: Famotidine 20 MG TAB PO SCH (21:00)
[2018-02-01] MEDS: Piperacillin/Tazobactam 3.375 GM in Sodium Chloride 0.9% 100 ML IVPB SCH ×4 (00:03→17:48)
[2018-02-01] MEDS: Sotalol HCl 80 MG TAB PO SCH ×3 (00:54→20:59)
[2018-02-01] MEDS: Furosemide 20 MG/2 ML VIAL SLOW IVP SCH ×2 (05:54→14:50)
[2018-02-01] MEDS: HYDROcodone/Acetaminophen 10/325 mg Tablet PO PRN ×4 (05:56→23:59)
[2018-02-01 06:35] LABS: #Basophils 0.1 thou/uL (0.0-0.2); #Eosinphils 0.1 thou/uL (0.0-0.7); #Lymphocytes 1.3 thou/uL (1.20-3.40); #Monocytes 0.9 thou/uL (0.11-0.59); #Neutrophils 6.7 thou/uL (1.40-6.50); %Eosinophils 1.5 % (0.0-10.0); %Lymphocytes 14.6 % (21.0-51.0); %Monocytes 9.4 % (0.0-10.0); %Neutrophils 73.6 % (42.0-75.0); Hemoglobin 13.3 g/dL (12.0-16.0); Mean Corpuscular HGB CONC 32.6 g/dL (32.0-36.0); Mean Corpuscular Hemoglobin 30.8 pg (27.0-31.0); Mean Corpuscular Volume 94.3 fL (78.0-98.0); Mean Platelet Volume 7.1 fL (7.4-10.4); Platelet Count 291 thou/uL (130-400); RBC Distribution Width 14.2 % (11.5-14.5); Red Blood Cell (RBC) Count 4.31 mill/uL (4.20-5.40); White Blood Cell (WBC) Count 9.1 thou/uL (4.8-10.8)
[2018-02-01 06:45] LABS: Anion Gap 13 mmol/L (10-20); BUN (Urea Nitrogen) 20 mg/dL (9.8-20.1); Calc. Creatinine Clearance 83 mL/min (70-130); Calcium 9.5 mg/dL (7.8-10.44); Carbon Dioxide 27 mmol/L (23-31); Chloride 103 mmol/L (98-107); Estimated GFR-MDRD 88; Glucose 101 mg/dL (83-110); Potassium 3.7 mmol/L (3.5-5.1); Sodium 139 mmol/L (136-145)
[2018-02-01] MEDS: Mometasone/Formoterol 120 PUFF INHALER INH SCH ×2 (08:56→19:11)
[2018-02-01] MEDS: Docusate 100 MG CAP PO SCH ×2 (08:56→20:59)
[2018-02-01] MEDS: predniSONE 5 MG TAB PO SCH (08:56)
[2018-02-01] MEDS: Bupropion 150 MG XL TAB PO SCH (08:56)
[2018-02-01] MEDS: guaiFENesin ER 600 MG TAB PO SCH ×2 (08:56→20:59)
[2018-02-01] MEDS: Gabapentin 100 MG CAP PO SCH (08:57)
[2018-02-01] MEDS: Famotidine 20 MG TAB PO SCH ×2 (08:57→20:59)
[2018-02-01] MEDS: Saccharomyces boulardii 250 MG CAP PO SCH (08:57)
[2018-02-01] MEDS: Lisinopril 2.5 MG TAB PO SCH (08:57)
[2018-02-01] MEDS: Potassium Chloride 20 MEQ TAB PO SCH ×2 (08:57→17:47)
[2018-02-01] MEDS: Acetaminophen 325 MG TAB PO PRN (08:58)
--- NOTE | 2018-02-01 12:38 | PDOC.PN ---
- Subjective Encounter Start Date: 02/01/18 Encounter Start Time: 09:30 Patient seen and examined for . No new complaints. No overnight events - Objective Resuscitation Status: Resuscitation Status FULL:Full Resuscitation MAR Reviewed: Yes Vital Signs & Weight: Vital Signs (12 hours) Temp Pulse Resp BP Pulse Ox 02/01/18 12:13 97.6 F 67 20 136/65 91 L 02/01/18 08:56 80 16 02/01/18 08:45 86 16 02/01/18 07:10 98.1 F 63 16 142/70 H 92 L 02/01/18 04:00 97.3 F L 65 14 139/64 94 L 02/01/18 00:54 69 Weight Weight 164 lb 12.8 oz I&O: 01/31/18 02/01/18 02/02/18 06:59 06:59 06:59 Intake Total 250 Output Total 375 Balance -125 Result Diagrams: 02/01/18 06:13 02/01/18 06:13 EKG Reviewed by me: Yes (Tele SR) Phys Exam - Physical Examination Constitutional: NAD Respiratory: no wheezing, no rhonchi Cardiovascular: RRR, no rub Gastrointestinal: soft, non-tender, positive bowel sounds Neurological: moves all 4 limbs Dx/Plan - Plan DVT proph w/SCDs IMPRESSION: Gen weakness Acute on chronic diastolic HF - Elevated troponins due to CHF Abn LFTs ?Acute Cholecystitis - Pt refused HIDA scan h/o Lung Ca s/p lobectomy with 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 - on hold for lung biopsy Atrial flutter with RVR - converted to SR Anxiety/Depression HTN Hypokalemia Chronic steroid use PLAN: Cont IV diuretics Await Lung biopsy AM labs including LFTs in AM Resume Gabapentin, Zoloft, Wellbutrin and Prednisone Cont other meds as below Cont low dose Lisinopril Cont Zosyn for ?Cholecystitis Review of Systems - Review of Systems Respiratory: negative: Cough, Dry, Shortness of Breath, Hemoptysis, SOB with Excertion, Pleuritic Pain, Sputum, Wheezing Cardiovascular: negative: chest pain, palpitations, orthopnea, paroxysmal nocturnal dyspnea, edema, light headedness, other - Medications/Allergies Allergies/Adverse Reactions: Allergies Allergy/AdvReac Type Severity Reaction Status Date / Time codeine Allergy Severe CP, SOB Verified 10/24/16 20:24 pregabalin [From Lyrica] Allergy depression Verified 10/24/16 20:24 and confusion Medications: Current Medications Acetaminophen (Tylenol) 650 mg PO Q4H PRN PRN Reason: Headache/Fever or Pain Last Admin: 02/01/18 08:58 Dose: 650 mg Hydrocodone Bitart/Acetaminophen ([place] 5/325) 1 tab PO Q4H PRN PRN Reason: Moderate Pain (4-6) Hydrocodone Bitart/Acetaminophen ([place] 10/325) 1 tab PO Q6H PRN PRN Reason: Severe Pain (7-10) Last Admin: 02/01/18 12:06 Dose: 1 tab Albuterol Sulfate (Ventolin) 2.5 mg NEB Q2H PRN PRN Reason: Wheezing Last Admin: 01/30/18 21:26 Dose: 2.5 mg Albuterol/Ipratropium (Duoneb) 3 ml NEB [id number] Last Admin: 02/01/18 08:45 Dose: 3 ml Albuterol/Ipratropium (Duoneb) 3 ml NEB [id number] PRN PRN Reason: SOB &/or Wheezing Bupropion HCl (Wellbutrin Xl) 300 mg PO DAILY [facility] Last Admin: 02/01/18 08:56 Dose: 300 mg Docusate Sodium (Colace) 100 mg PO BID [facility] Last Admin: 02/01/18 08:56 Dose: 100 mg Famotidine (Pepcid) 20 mg PO BID [facility] Last Admin: 02/01/18 08:57 Dose: 20 mg Furosemide (Lasix) 20 mg SLOW IVP 0600,1400 [facility] Last Admin: 02/01/18 05:54 Dose: 20 mg Gabapentin (Neurontin) 600 mg PO HS [facility] Last Admin: 01/31/18 20:45 Dose: 600 mg Gabapentin (Neurontin) 300 mg PO DAILY [facility] Last Admin: 02/01/18 08:57 Dose: 300 mg Guaifenesin (Mucinex) 1,200 mg PO Q12HR [facility] Last Admin: 02/01/18 08:56 Dose: 1,200 mg Guaifenesin/Dextromethorphan (Robitussin Dm) 15 ml PO Q4H PRN PRN Reason: Cough Piperacillin Sod/Tazobactam (Sod 3.375 gm/ Sodium Chloride) 100 mls @ 200 mls/ hr IVPB Q6HR [facility] Last Admin: 02/01/18 12:07 Dose: 100 mls Lisinopril (Zestril) 2.5 mg PO DAILY [facility] Last Admin: 02/01/18 08:57 Dose: 2.5 mg Lorazepam (Ativan) 0.5 mg PO Q6HR PRN PRN Reason: Anxiety Melatonin (Melatonin) 3 mg PO HS PRN PRN Reason: Insomnia Miscellaneous Medication (Pharmacy To Dose) 1 each IVPB ONE PRN PRN Reason: Pharmacy to dose Stop: 03/02/18 10:46 Mometasone Furoate/Formoterol Fumar (Dulera 200 Mcg/5 Mcg Inhaler) 1 puff INH BID-RT [facility] Last Admin: 02/01/18 08:56 Dose: 1 puff Potassium Chloride (K-Dur) 20 meq PO BID-[facility] Last Admin: 02/01/18 08:57 Dose: 20 meq Prednisone (Prednisone) 5 mg PO QAM-[facility] Last Admin: 02/01/18 08:56 Dose: 5 mg Saccharomyces Boulardii (Florastor) 250 mg PO DAILY [facility] Last Admin: 02/01/18 08:57 Dose: 250 mg Sertraline HCl (Zoloft) 100 mg PO DAILY [facility] Last Admin: 02/01/18 08:56 Dose: 100 mg Sotalol HCl (Betapace) 40 mg PO BID [facility] Last Admin: 02/01/18 08:56 Dose: 40 mg
--- NOTE | 2018-02-01 14:05 | PRG ---
DATE OF SERVICE: 02/01/2018 SUBJECTIVE: This morning, she says she is feeling better, less short of breath. No coughing or wheezing. OBJECTIVE: VITAL SIGNS: Sats are 92% on 2 liters, respirations 16, temperature 98, pulse 80, blood pressure is 142/70. CHEST: Decreased breath sounds without any wheezing. CARDIAC: Normal S1 and S2. No gallops. ABDOMEN: Soft. No masses. LABORATORY DATA: ALT is 456. Electrolytes are normal. IMPRESSION: Pneumonia, cholecystitis, myocardial infarction, hypoxemia and adenocarcinoma. PLAN: Continue present treatment, antibiotics, steroids. We will follow.
[2018-02-01] MEDS ORDERED: Sodium Chloride 0.9% 10 ML ONE (19:49)
[2018-02-01] MEDS: Gabapentin 300 MG CAP PO SCH (20:58)
[2018-02-02] MEDS: Acetaminophen 325 MG TAB PO PRN ×2 (02:35→10:03)
[2018-02-02 05:42] LABS: INR-International Normal Ratio 1.1; PTT 33.7 SEC (22.9-36.1); Prothrombin Time 14.3 SEC (12.0-14.7)
[2018-02-02 05:46] LABS: ALT (SGPT) 263 U/L (8-55); AST (SGOT) 65 U/L (5-34); Albumin 3.4 g/dL (3.4-4.8); Alkaline Phosphatase 88 U/L (40-150); Anion Gap 14 mmol/L (10-20); BUN (Urea Nitrogen) 22 mg/dL (9.8-20.1); Bilirubin, Total 0.6 mg/dL (0.2-1.2); Calc. Creatinine Clearance 77 mL/min (70-130); Carbon Dioxide 26 mmol/L (23-31); Chloride 102 mmol/L (98-107); Estimated GFR-MDRD 81; Globulin 2.8 g/dL (2.4-3.5); Glucose 92 mg/dL (83-110); Magnesium 2.1 mg/dL (1.6-2.6); Potassium 3.5 mmol/L (3.5-5.1); Protein, Total 6.2 g/dL (6.0-8.3); Sodium 138 mmol/L (136-145)
[2018-02-02 05:54] LABS: #Basophils 0.1 thou/uL (0.0-0.2); #Eosinphils 0.4 thou/uL (0.0-0.7); #Lymphocytes 1.4 thou/uL (1.20-3.40); #Monocytes 0.9 thou/uL (0.11-0.59); #Neutrophils 5.4 thou/uL (1.40-6.50); %Basophils 0.7 % (0.0-1.0); %Eosinophils 5.2 % (0.0-10.0); %Lymphocytes 17.1 % (21.0-51.0); %Monocytes 10.4 % (0.0-10.0); %Neutrophils 66.6 % (42.0-75.0); Hemoglobin 12.5 g/dL (12.0-16.0); Mean Corpuscular HGB CONC 31.9 g/dL (32.0-36.0); Mean Corpuscular Hemoglobin 30.5 pg (27.0-31.0); Mean Corpuscular Volume 95.5 fL (78.0-98.0); Mean Platelet Volume 7.6 fL (7.4-10.4); Platelet Count 258 thou/uL (130-400); RBC Distribution Width 14.3 % (11.5-14.5); Red Blood Cell (RBC) Count 4.08 mill/uL (4.20-5.40); White Blood Cell (WBC) Count 8.2 thou/uL (4.8-10.8)
[2018-02-02] MEDS: Furosemide 20 MG/2 ML VIAL SLOW IVP SCH ×2 (06:12→15:56)
[2018-02-02] MEDS: Piperacillin/Tazobactam 3.375 GM in Sodium Chloride 0.9% 100 ML IVPB SCH ×4 (06:16→19:22)
[2018-02-02] MEDS: HYDROcodone/Acetaminophen 10/325 mg Tablet PO PRN ×2 (06:16→20:13)
[2018-02-02] MEDS: Mometasone/Formoterol 120 PUFF INHALER INH SCH ×2 (07:18→19:11)
[2018-02-02] MEDS: Sotalol HCl 80 MG TAB PO SCH ×2 (07:30→20:18)
[2018-02-02] MEDS ORDERED: Fentanyl 100 MCG/2 ML VIAL ONE (08:34)
[2018-02-02] MEDS ORDERED: Sodium Bicarbonate 2.5 MEQ/5 ML VIAL ONE (08:34)
[2018-02-02] MEDS ORDERED: Midazolam HCl 2 mg/2 ml Vial ONE (08:34)
[2018-02-02] MEDS: guaiFENesin ER 600 MG TAB PO SCH ×2 (09:59→20:15)
[2018-02-02] MEDS: Bupropion 150 MG XL TAB PO SCH (10:00)
[2018-02-02] MEDS: Lisinopril 2.5 MG TAB PO SCH (10:00)
[2018-02-02] MEDS: Saccharomyces boulardii 250 MG CAP PO SCH (10:00)
[2018-02-02] MEDS: Docusate 100 MG CAP PO SCH ×2 (10:00→20:14)
[2018-02-02] MEDS: Gabapentin 100 MG CAP PO SCH (10:00)
[2018-02-02] MEDS: Famotidine 20 MG TAB PO SCH ×2 (10:00→20:15)
[2018-02-02] MEDS: Potassium Chloride 20 MEQ TAB PO SCH ×2 (10:00→19:22)
[2018-02-02] MEDS: predniSONE 5 MG TAB PO SCH (10:01)
[2018-02-02] MEDS ORDERED: Acetaminophen 500 MG TAB PO PRN (10:14)
--- NOTE | 2018-02-02 12:03 | CT ---
CT GUIDED RIGHT LUNG MASS BIOPSY: History: Lung cancer. New lung masses. FINDINGS: After explaining the procedure and answering all questions, the patient was placed on the CT table. L imited imaging was performed. Right posterior approach was planned. Sterile technique, buffered local anesthesia, CT guidance and a right posterior paraspinal approach were used to carefully advance a 1 9 gauge trocar needle into the enlarging right lower lobe mass. Position was confirmed with CT. A total of four 20-gauge core biopsy specimens were obtained and submitted to pathology for evaluatio n. Specimen adequacy was confirmed. Needle was removed. Post procedure imaging shows no evidence of c omplication. Patient tolerated the procedure well and was returned in unchanged condition. IMPRESSION: Technically successful CT guidance right lung mass biopsy. Pathology is pending. POS: NOAM
--- NOTE | 2018-02-02 19:21 | PDOC.PN ---
- Subjective Encounter Start Date: 02/02/18 Encounter Start Time: 08:00 Patient seen and examined for CHF/Gen weakness. No new complaints. Leg swelling improving. No overnight events - Objective Resuscitation Status: Resuscitation Status DNR:Do Not Resuscitate MAR Reviewed: Yes Vital Signs & Weight: Vital Signs (12 hours) Temp Pulse Resp BP BP Pulse Ox 02/02/18 19:11 75 14 99 02/02/18 14:02 71 16 02/02/18 10:00 71 106/55 L 02/02/18 07:30 71 104/56 L 02/02/18 07:20 97.9 F 71 16 104/56 L 95 Weight Weight 160 lb 3.2 oz I&O: 02/01/18 02/02/18 02/03/18 06:59 06:59 06:59 Intake Total 250 445 Output Total 375 300 Balance -125 145 Result Diagrams: 02/02/18 04:26 02/02/18 04:26 EKG Reviewed by me: Yes (Tele SR) Phys Exam - Physical Examination Constitutional: NAD Respiratory: no wheezing, no rhonchi Cardiovascular: RRR, no rub Minimal bibasilar rales Gastrointestinal: soft, non-tender, positive bowel sounds Musculoskeletal: edema present (improving) Psychiatric: A&O x 3 Dx/Plan - Plan DVT proph w/SCDs IMPRESSION: Gen weakness - multifactorial Acute on chronic diastolic HF - improving Elevated troponins due to CHF Abn LFTs ?Acute Cholecystitis - Pt refused HIDA scan - LFTs improving h/o Lung Ca s/p lobectomy with 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 - on hold for lung biopsy Atrial flutter with RVR - converted to SR Anxiety/Depression HTN Hypokalemia Chronic steroid use PLAN: DC IV diuretics after todays dose Lung biopsy today BMP in AM Cont current meds as below Cont Zosyn Resume anticoag ?24hr after Lung biopsy - Will confirm with Dr Dejesus Review of Systems - Review of Systems Respiratory: negative: Cough, Dry, Shortness of Breath, Hemoptysis, SOB with Excertion, Pleuritic Pain, Sputum, Wheezing Cardiovascular: negative: chest pain, palpitations, orthopnea, paroxysmal nocturnal dyspnea, edema, light headedness, other - Medications/Allergies Allergies/Adverse Reactions: Allergies Allergy/AdvReac Type Severity Reaction Status Date / Time codeine Allergy Severe CP, SOB Verified 04/20/17 20:24 pregabalin [From Lyrica] Allergy depression Verified 10/24/16 20:24 and confusion Medications: Current Medications Acetaminophen (Tylenol) 650 mg PO Q4H PRN PRN Reason: Headache/Fever or Pain Last Admin: 02/02/18 10:03 Dose: 650 mg Acetaminophen (Tylenol) 1,000 mg PO Q4H PRN PRN Reason: Headache/Fever or Pain Hydrocodone Bitart/Acetaminophen ([place] 5/325) 1 tab PO Q4H PRN PRN Reason: Moderate Pain (4-6) Hydrocodone Bitart/Acetaminophen ([place] 10/325) 1 tab PO Q6H PRN PRN Reason: Severe Pain (7-10) Last Admin: 02/02/18 06:16 Dose: 1 tab Albuterol Sulfate (Ventolin) 2.5 mg NEB Q2H PRN PRN Reason: Wheezing Last Admin: 01/30/18 21:26 Dose: 2.5 mg Albuterol/Ipratropium (Duoneb) 3 ml NEB [id number] [facility] Last Admin: 02/02/18 19:11 Dose: 3 ml Albuterol/Ipratropium (Duoneb) 3 ml NEB [id number] PRN PRN Reason: SOB &/or Wheezing Bupropion HCl (Wellbutrin Xl) 300 mg PO DAILY [facility] Last Admin: 02/02/18 10:00 Dose: 300 mg Docusate Sodium (Colace) 100 mg PO BID [facility] Last Admin: 02/02/18 10:00 Dose: 100 mg Famotidine (Pepcid) 20 mg PO BID [facility] Last Admin: 02/02/18 10:00 Dose: 20 mg Gabapentin (Neurontin) 600 mg PO HS [facility] Last Admin: 02/01/18 20:58 Dose: 600 mg Gabapentin (Neurontin) 300 mg PO DAILY [facility] Last Admin: 02/02/18 10:00 Dose: 300 mg Guaifenesin (Mucinex) 1,200 mg PO Q12HR [facility] Last Admin: 02/02/18 09:59 Dose: 1,200 mg Guaifenesin/Dextromethorphan (Robitussin Dm) 15 ml PO Q4H PRN PRN Reason: Cough Piperacillin Sod/Tazobactam (Sod 3.375 gm/ Sodium Chloride) 100 mls @ 200 mls/ hr IVPB Q6HR [facility] Last Admin: 02/02/18 12:23 Dose: 100 mls Lisinopril (Zestril) 2.5 mg PO DAILY [facility] Last Admin: 02/02/18 10:00 Dose: 2.5 mg Lorazepam (Ativan) 0.5 mg PO Q6HR PRN PRN Reason: Anxiety Melatonin (Melatonin) 3 mg PO HS PRN PRN Reason: Insomnia Miscellaneous Medication (Pharmacy To Dose) 1 each IVPB ONE PRN PRN Reason: Pharmacy to dose Stop: 03/02/18 10:46 Mometasone Furoate/Formoterol Fumar (Dulera 200 Mcg/5 Mcg Inhaler) 1 puff INH BID-RT [facility] Last Admin: 02/02/18 19:11 Dose: 1 puff Potassium Chloride (K-Dur) 20 meq PO QAM-WM [facility] Prednisone (Prednisone) 5 mg PO QAM-WM [facility] Last Admin: 02/02/18 10:01 Dose: 5 mg Saccharomyces Boulardii (Florastor) 250 mg PO DAILY [facility] Last Admin: 02/02/18 10:00 Dose: 250 mg Sertraline HCl (Zoloft) 100 mg PO DAILY [facility] Last Admin: 02/02/18 10:00 Dose: 100 mg Sodium Chloride (Flush - Normal Saline) 10 ml IVF Q12HR [facility] Last Admin: 02/02/18 15:55 Dose: Not Given Sodium Chloride (Flush - Normal Saline) 10 ml IVF PRN PRN PRN Reason: Saline Flush Last Admin: 02/02/18 06:13 Dose: 10 ml Sotalol HCl (Betapace) 40 mg PO BID [facility] Last Admin: 02/02/18 07:30 Dose: 40 mg
[2018-02-02] MEDS: Gabapentin 300 MG CAP PO SCH (20:16)
--- NOTE | 2018-02-02 23:33 | CON ---
DATE OF CONSULTATION: 02/02/2018 DATE OF ADMISSION: 01/29/2018 INDICATION FOR CONSULTATION: New-onset congestive heart failure. HISTORY OF PRESENT ILLNESS: This very unfortunate 77-year-old female who was diagnosed with adenocar cinoma of the lungs, underwent resection and now has possible recurrence of this with perhaps some me tastasis due to multiple nodules noted in the left lung. We are still awaiting a biopsy. She was sc heduled to undergo PET imaging next week, but this was actually sometime this week. She actually was admitted due to failure to thrive and shortness of breath, p.o. and with some nausea and vomiting. She continued to lose weight, became progressively weaker and was seen in the hospital. We were aske d to see her, it was thought to be new-onset congestive heart failure. She does have diastolic dysfu nction but has a normal ejection fraction. She has no other symptoms of congestive heart failure. S he was given some diuretics and now appears to be volume depleted with orthostatic hypotension. At t his time, she is doing relatively well otherwise from a cardiac standpoint. 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 She has a history of atrial fibrillation, lipid disorde r. She has had pneumonias in the past. She has had a history of appendectomy, tonsillectomy, catara ct surgery. She had the partial right upper lobe removal by a thoracotomy, dyslipidemia. FAMILY HISTORY: Unremarkable any early heart disease. SOCIAL HISTORY: No history of alcohol or tobacco abuse at this time. REVIEW OF SYSTEMS: A 12-point review of systems is otherwise unremarkable from a cardiac standpoint. She is somewhat lightheaded today and blood pressure is hypotensive when she is up, but when she is in Trendelenburg the blood pressure increases, making me suspicious that she has orthostatic hypoten jose, most likely due to over diuresis. ALLERGIES: She is allergic to CODEINE, METAXALONE, PENICILLIN, LYRICA, or PREGABALIN. SOCIAL HISTORY: She did smoke in the past, a pack a day, but stopped several years ago. Also, she h as had bilateral shoulder manipulations. She has had 3 D&Cs. PHYSICAL EXAMINATION: GENERAL: Reveals an elderly female. She is in no acute distress at this time. She does appear to b e pale and very weak. VITAL SIGNS: Showed blood pressure 106/55, heart rate is 71, respiratory rate 16. She is afebrile, O2 saturation 95% on 2 liters. HEENT: Shows the head to be normocephalic, atraumatic. Carotid pulses are present. I did not hear any significant bruits. CHEST: She has some decreased breath sounds on the right side, but there were no significant rales, rhonchi, or wheezing noted. CARDIOVASCULAR: Exam reveals a regular rate and rhythm at this time. She has a very soft systolic m urmur noted at the apex. ABDOMEN: Soft and nontender. Positive bowel sounds are present. EXTREMITIES: Showed no clubbing, cyanosis, or edema. She has slightly decreased pedal pulses; howev er, but they are palpable. NEUROLOGIC: The patient appears to be intact except for overall weakness. SKIN: Warm and dry. LABORATORY DATA: Shows WBC of 8.2, hemoglobin is 12.5. Sodium is 138 with potassium is 3.5, BUN is 22 and creatinine 0.7 with a blood sugar of 92. Originally when she arrived, her AST was 1365, is no w decreased down to 65. Her ALT was elevated at 762, is now down to 263. Her BNP was 825. Cardiac enzymes were somewhat indeterminate and most likely was due to demand ischemia. Her first troponin I was 1.185, this decreased now down to 0.7. She appears to be in sinus rhythm. IMPRESSION: 1. 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 Yessy ledesma has undergone a CT guided biopsy today with the results still pending. We will await the results o f the study. 2. Some history by echocardiogram of diastolic dysfunction. She appears to be stable at this time. I would not over diurese this patient, associated with her diastolic dysfunction. She has a normal systolic function. BNP most likely was elevated due to the diastolic dysfunction and due to demand i schemia associated with her lung disease. She is not a candidate at this time to undergo any further cardiac interventions. 3. Severe chronic obstructive pulmonary disease. This is managed by Pulmonology. 4. History of paroxysmal atrial fibrillation. She remains in sinus rhythm at this time. 5. History of dyslipidemia. At this time, this does not appear to be a significant problem. Her me dications, please note prior to admission, her medicines include gabapentin, for which I believe she has been taken off now, she is on ondansetron hydrochloride 8 mg every day for nausea. She is on Luz Elena andres 5 mg b.i.d., potassium 10 mEq a day, furosemide 20 mg every other day or every day as needed for lower extremity edema, prednisone 5 mg a day, sotalol 80 mg half a tablet b.i.d., Flonase nasal spra y, bupropion, lorazepam, sertraline, and hydrocodone as needed. We will be more than happy to contin ue to follow the patient with you, but at this time from a cardiac standpoint, I believe she is relat ively stable except she appears to be somewhat volume depleted. We will continue this, we will hold off on her diuretics. I would advise that unless she has further edema or increasing shortness of br eath and chest x-ray indicates volume or pleural effusions.
[2018-02-03] MEDS: Piperacillin/Tazobactam 3.375 GM in Sodium Chloride 0.9% 100 ML IVPB SCH ×3 (00:05→11:54)
--- NOTE | 2018-02-03 02:02 | PRG ---
DATE OF SERVICE: 02/02/2018 SUBJECTIVE: She is tolerated her lung biopsy today without adverse effects. She is not wheezing on exam. OBJECTIVE: VITAL SIGNS: Ms. Lund's heart rate is in the 70s, blood pressure 106/55, respiratory rates in the teens, oximetry is 99. HEART: Regular rhythm. ABDOMEN: Soft. IMPRESSION AND PLAN: ? Recurrent mucinous adenocarcinoma, awaiting biopsy. Scheduled for a PET imag ing tomorrow, we will cancel this for now. I am not sure we will change her management. Pathology w ill determine everything. I think she would benefit from stay in the residential facility before she goes home.
[2018-02-03] MEDS: HYDROcodone/Acetaminophen 10/325 mg Tablet PO PRN ×4 (04:39→23:30)
[2018-02-03 05:52] LABS: Anion Gap 12 mmol/L (10-20); BUN (Urea Nitrogen) 16 mg/dL (9.8-20.1); Calc. Creatinine Clearance 83 mL/min (70-130); Calcium 9.2 mg/dL (7.8-10.44); Carbon Dioxide 27 mmol/L (23-31); Chloride 105 mmol/L (98-107); Estimated GFR-MDRD Greater than 90; Glucose 80 mg/dL (83-110); Potassium 3.9 mmol/L (3.5-5.1); Sodium 140 mmol/L (136-145)
[2018-02-03] MEDS: Mometasone/Formoterol 120 PUFF INHALER INH SCH ×2 (06:59→19:47)
[2018-02-03] MEDS ORDERED: Potassium Chloride 20 MEQ TAB PO SCH (08:00)
[2018-02-03] MEDS: predniSONE 5 MG TAB PO SCH (08:30)
--- NOTE | 2018-02-03 09:22 | PDOC.CTH ---
<Selina Hawley - Last Filed: 02/03/18 09:16> Cardiology Progress Note - Subjective The pt seen and examined. No overnight events. No cardiac complaints. - Objective Vital Signs Temp Pulse Resp BP Pulse Ox 02/03/18 07:00 70 16 02/03/18 03:08 97.5 F L 67 15 126/59 L 97 Weight 160 lb 8 oz 02/02/18 02/03/18 02/04/18 06:59 06:59 06:59 Intake Total 445 750 Output Total 300 350 Balance 145 400 - Physical Examination General/Neuro: alert & oriented x3 Neck: no JVD present Lungs: CTA (very diminished, Rt>Lt) Heart: RRR Abdomen: soft Extremities: other: (No edema) - Telemetry Telemetry Rhythm: SR 70s - Labs Result Diagrams: 02/02/18 04:26 02/03/18 04:23 Troponin/CKMB CK-MB (CK-2) 5.3 ng/mL (0-6.6) 01/29/18 13:07 Troponin I 0.746 ng/mL (< 0.028) H* 01/29/18 19:25 - Assessment/Plan 1. Hx of Rt lung cancer with hx of Partial pnrumonectomy and s/p Lung biopsy on 02/02/18 - 2. Atrial flutter with RVR - remains in SR with Sotalol 40mg BID. Holding Eliquis for s/p biopsy. 3. Chronic diastolic HF - stable; holding Lisinopril, Lasix and Kcl for now due to hypotensive 4. Hyperlipidemia - cont. to monitor 5. COPD - stable; managed by Pet Care Worker 6. Elevated LFT - improving. Not on Statin at this moment. MAR reviewed Review of Systems - Review of Systems Constitutional: reports: no symptoms reported EENTM: reports: no symptoms reported Respiratory: reports: no symptoms reported Cardiac (ROS): reports: no symptoms reported ABD/GI: reports: no symptoms reported : reports: no symptoms reported Musculoskeletal: reports: no symptoms reported <Rolo Maldonado - Last Filed: 02/04/18 10:10> Cardiology Progress Note - Objective Vital Signs Temp Pulse Resp BP BP Pulse Ox 02/04/18 08:16 68 161/105 H 02/04/18 08:00 98.8 F 68 22 H 161/105 H 94 L 02/04/18 07:03 80 32 H 94 L 02/04/18 04:00 97.5 F L 70 16 170/78 H 92 L 02/04/18 00:33 98.3 F 71 16 144/77 H 95 Weight 160 lb 3.394 oz 02/03/18 02/04/18 02/05/18 06:59 06:59 06:59 Intake Total 750 240 Output Total 350 Balance 400 240 - Labs Result Diagrams: 02/02/18 04:26 02/03/18 04:23 Troponin/CKMB CK-MB (CK-2) 5.3 ng/mL (0-6.6) 01/29/18 13:07 Troponin I 0.746 ng/mL (< 0.028) H* 01/29/18 19:25 - Assessment/Plan Pt. seen and eval. by me. I agree with the A/P by the HUMAN RESOURCE PROFESSIONAL. It seems that the lung cancer has recurred.The cardiac status is stable. If the BP increases then resume Thaddeus-inhibitor. Lasix as needed.
[2018-02-03] MEDS: Docusate 100 MG CAP PO SCH ×2 (09:32→21:09)
[2018-02-03] MEDS: Saccharomyces boulardii 250 MG CAP PO SCH (09:32)
[2018-02-03] MEDS: Gabapentin 100 MG CAP PO SCH (09:33)
[2018-02-03] MEDS: Bupropion 150 MG XL TAB PO SCH (09:33)
[2018-02-03] MEDS: Sotalol HCl 80 MG TAB PO SCH ×2 (09:33→21:07)
[2018-02-03] MEDS: guaiFENesin ER 600 MG TAB PO SCH ×2 (09:34→21:09)
[2018-02-03] MEDS: Famotidine 20 MG TAB PO SCH ×2 (09:34→21:09)
--- NOTE | 2018-02-03 15:49 | PRG ---
DATE OF SERVICE: 02/03/2018 SUBJECTIVE: Ms. Lund is clinically stable. Her pathology returned recurrent mucinous adenocarcino ma. OBJECTIVE: VITAL SIGNS: She is afebrile, heart rate is 80, respiratory rate is 16, oximetry is 94 on 3 liters, blood pressure 155/73. LUNGS: Clear. HEART: Regular rhythm. ABDOMEN: Soft. Intake and output is positive 400. IMPRESSION: 1. Intravascular volume depletion secondary to failure to thrive prior to admission. 2. Recurrent mucinous adenocarcinoma. 3. Elevated liver enzymes, improving. I discussed with General Surgery the thickening of the gallbladder wall without a HIDA scan, it is a very nonspecific finding. Keeping her on Zosyn is probably not the best idea given that she has no s ymptoms of cholecystitis. I asked Oncology to see her. She needs to be placed in a skilled unit for physical therapy until all the final special stains come back on her pathology specimen. We need to be careful about prescribing diuretics and over treating her blood pressure given her ongo ing risk for intravascular volume depletion with her paraneoplastic, decreased p.o. intake and weakne ss.
--- NOTE | 2018-02-03 16:43 | CON ---
DATE OF CONSULTATION: 02/03/2018 REASON FOR CONSULTATION: Lung cancer. HISTORY OF PRESENT ILLNESS: Ms. Lund is a 77-year-old female who was found to have a right lower l obe mass in 09/2016. She underwent a right lower lobe lobectomy in 10/2016 and final path confirmed extensive moderately differentiated mucinous type adenocarcinoma involving the vast majority of the r ight lower lobe. All margins and lymph nodes were negative. Her postoperative course was complicate d by readmission for DVT, pulmonary emboli and atrial fibrillation. She saw Dr. Vargas in 03/2017. She agreed to observation as adjuvant chemotherapy at that time with be of unclear efficacy. The pa baldomero has not returned to our clinic, but has been followed by Dr. Cano and Dr. Dejesus. Over the p ast several months, she has gotten progressively weaker. She has been diagnosed with pneumonia. She had an outpatient PET scan ordered for this week; however, she became acutely weak and came by EMS t o the emergency room. A chest x-ray showed a right upper lobe mass. A brain CT was negative for met astatic disease. She underwent a CT-guided lung biopsy which confirmed a recurrent mucinous adenocar cinoma. We were asked to see the patient regarding followup. PAST MEDICAL HISTORY: 1. 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 2. History of deep venous thrombosis and pulmonary emboli postop. 3. Atrial fibrillation with rapid ventricular response. 4. Hyperlipidemia. 5. Anxiety and depression. 6. Chronic obstructive pulmonary disease. 7. Gastroesophageal reflux disease. 8. Degenerative joint disease. PAST SURGICAL HISTORY: 1. Right thoracotomy with right lower lobe lobectomy and mediastinal lymph node dissection. 2. Bilateral cataract extraction. 3. Bilateral shoulder surgery. 4. Appendectomy. ALLERGIES: CODEINE and PREGABALIN. HOME MEDICATIONS: 1. Ventolin p.r.n. 2. Eliquis 5 mg b.i.d. 3. Symbicort b.i.d. 4. Wellbutrin 300 mg daily. 5. Flonase b.i.d. 6. Furosemide 20 mg every 2 days. 7. Gabapentin 900 mg daily. 8. Hydrocodone p.r.n. 9. Lorazepam 0.5 mg p.r.n. 10. Potassium chloride 10 mEq daily. 11. Prednisone 5 mg daily. 12. Zoloft 100 mg daily. 13. Sotalol 40 mg b.i.d. FAMILY HISTORY: Mother had colon and breast cancer. Daughter had breast cancer. SOCIAL HISTORY: . Has 4 children, lives alone, 85-pmin-umck history of smoking. REVIEW OF SYSTEMS: CONSTITUTIONAL: No fever, chills, night sweats. Positive for weakness, fatigue, and loss of appetit e. EYES: No blurred or double vision. ENT: No pain, hoarseness, sore throat, dysphagia. CARDIOVASCULAR: No chest pain or palpitations. Positive for syncope. RESPIRATORY: Positive shortness of breath, cough, and hemoptysis. GASTROINTESTINAL: No nausea, vomiting, diarrhea, constipation, abdominal pain. GENITOURINARY: No dysuria or hematuria. MUSCULOSKELETAL: Positive for joint and back pain. SKIN: No rash or pruritus. HEMATOLOGIC: Positive for bruising. No bleeding or clotting. NEUROLOGIC: Positive for dizziness, numbness, tingling. PSYCHIATRIC: Positive for anxiety and depression. PHYSICAL EXAMINATION: VITAL SIGNS: Temperature 97.5, pulse is 68, respiratory rate 20, BP is 151/70. She is 95% on 2.5 li ters. GENERAL: Well-developed, well-nourished female, in no acute distress. HEENT: Normocephalic, atraumatic. Pupils equal and reactive to light. NECK: Supple. HEART: Regular rate and rhythm. LUNGS: She has got crackles throughout. ABDOMEN: Soft, nontender, bowel sounds are positive. EXTREMITIES: No clubbing, cyanosis or edema. SKIN: No rash. HEMATOLOGIC: He has got ecchymotic upper extremities. NEUROLOGICAL: Nonfocal. PSYCHIATRIC: The patient is alert and oriented and appropriate. PERTINENT LABORATORY AND X-RAYS: Current WBCs are 8.2, hemoglobin 12.5, hematocrit 39.0, platelet co unt 258,000, 67% neutrophils, 17% lymphocytes. Sodium is 140, potassium 3.9, chloride 105, CO2 is 27 , BUN is 16, creatinine 0.63, calcium is 9.2, bilirubin is 0.6, AST 65, ALT is 263, ALT is 88. BNP i s 825. Serum total protein 6.2, albumin 3.4, globulin 2.8. Radiology per HPI. ASSESSMENT: Recurrent mucinous adenocarcinoma of the lung. DISCUSSION: The patient will follow up in the clinic with Dr. Vargas to discuss treatment options. Her mutation panel has been sent and is currently pending. The patient is planning to go to long-term unit for the next week or so to get her strength back. We will follow up with her once she has been discharged. Thank you for the consult.
[2018-02-03] MEDS: Lorazepam 0.5 MG TAB PO PRN (17:41)
--- NOTE | 2018-02-03 19:44 | PDOC.PN ---
- Subjective Encounter Start Date: 02/03/18 Encounter Start Time: 08:00 Patient seen and examined for gen weakness. No new complaints. No overnight events - Objective Resuscitation Status: Resuscitation Status DNR:Do Not Resuscitate MAR Reviewed: Yes Vital Signs & Weight: Vital Signs (12 hours) Temp Pulse Pulse Resp BP BP BP 02/03/18 18:25 156/85 H 02/03/18 16:34 97.9 F 76 20 02/03/18 16:29 97.4 F L 81 18 132/81 02/03/18 14:52 81 16 02/03/18 14:50 97.9 F 76 20 02/03/18 12:00 97.5 F L 68 20 151/70 H 02/03/18 10:30 74 155/73 H 02/03/18 10:12 70 16 02/03/18 09:40 97.5 F L 71 20 02/03/18 09:33 71 02/03/18 09:30 97.5 F L 71 20 103/55 L BP Pulse Ox Pulse Ox 02/03/18 18:25 02/03/18 16:34 178/92 H 84 L 02/03/18 16:29 93 L 02/03/18 14:52 94 L 02/03/18 14:50 93 L 02/03/18 12:00 95 02/03/18 10:30 92 L 02/03/18 10:12 02/03/18 09:40 92 L 02/03/18 09:33 02/03/18 09:30 92 L Weight Weight 160 lb 8 oz I&O: 02/02/18 02/03/18 02/04/18 06:59 06:59 06:59 Intake Total 445 750 Output Total 300 350 Balance 145 400 Result Diagrams: 02/02/18 04:26 02/03/18 04:23 EKG Reviewed by me: Yes (Tele SR) Phys Exam - Physical Examination Constitutional: NAD Respiratory: no wheezing, no rhonchi Cardiovascular: RRR, no rub Gastrointestinal: soft, non-tender, positive bowel sounds Musculoskeletal: no edema Dx/Plan - Plan DVT proph w/SCDs IMPRESSION: Gen weakness - multifactorial Acute on chronic diastolic HF - improved Elevated troponins due to CHF Abn LFTs - improving h/o Lung Ca s/p lobectomy h/o PE/DVT on anticoag - on hold s/p lung biopsy Atrial flutter with RVR - converted to SR Anxiety/Depression HTN Hypokalemia - replaced Chronic steroid use PLAN: Cont Sotalol Cont current meds as below Cont PT/OT Await lung biopsy Review of Systems - Review of Systems Respiratory: negative: Cough, Dry, Shortness of Breath, Hemoptysis, SOB with Excertion, Pleuritic Pain, Sputum, Wheezing Cardiovascular: negative: chest pain, palpitations, orthopnea, paroxysmal nocturnal dyspnea, edema, light headedness, other - Medications/Allergies Allergies/Adverse Reactions: Allergies Allergy/AdvReac Type Severity Reaction Status Date / Time codeine Allergy Severe CP, SOB Verified 10/24/16 20:24 pregabalin [From Lyrica] Allergy depression Verified 10/24/16 20:24 and confusion Medications: Current Medications Acetaminophen (Tylenol) 650 mg PO Q4H PRN PRN Reason: Headache/Fever or Pain Last Admin: 02/02/18 10:03 Dose: 650 mg Acetaminophen (Tylenol) 1,000 mg PO Q4H PRN PRN Reason: Headache/Fever or Pain Hydrocodone Bitart/Acetaminophen ([place] 5/325) 1 tab PO Q4H PRN PRN Reason: Moderate Pain (4-6) Hydrocodone Bitart/Acetaminophen ([place] 10/325) 1 tab PO Q6H PRN PRN Reason: Severe Pain (7-10) Last Admin: 02/03/18 17:39 Dose: 1 tab Albuterol Sulfate (Ventolin) 2.5 mg NEB Q2H PRN PRN Reason: Wheezing Last Admin: 01/30/18 21:26 Dose: 2.5 mg Albuterol/Ipratropium (Duoneb) 3 ml NEB [id number] Last Admin: 02/03/18 14:52 Dose: 3 ml Albuterol/Ipratropium (Duoneb) 3 ml NEB [id number] PRN PRN Reason: SOB &/or Wheezing Bupropion HCl (Wellbutrin Xl) 300 mg PO DAILY [facility] Last Admin: 02/03/18 09:33 Dose: 300 mg Docusate Sodium (Colace) 100 mg PO BID [facility] Last Admin: 02/03/18 09:32 Dose: 100 mg Famotidine (Pepcid) 20 mg PO BID [facility] Last Admin: 02/03/18 09:34 Dose: 20 mg Gabapentin (Neurontin) 600 mg PO HS [facility] Last Admin: 02/02/18 20:16 Dose: 600 mg Gabapentin (Neurontin) 300 mg PO DAILY [facility] Last Admin: 02/03/18 09:33 Dose: 300 mg Guaifenesin (Mucinex) 1,200 mg PO Q12HR [facility] Last Admin: 02/03/18 09:34 Dose: 1,200 mg Guaifenesin/Dextromethorphan (Robitussin Dm) 15 ml PO Q4H PRN PRN Reason: Cough Lorazepam (Ativan) 0.5 mg PO Q6HR PRN PRN Reason: Anxiety Last Admin: 02/03/18 17:41 Dose: 0.5 mg Melatonin (Melatonin) 3 mg PO HS PRN PRN Reason: Insomnia Miscellaneous Medication (Pharmacy To Dose) 1 each IVPB ONE PRN PRN Reason: Pharmacy to dose Stop: 03/02/18 10:46 Mometasone Furoate/Formoterol Fumar (Dulera 200 Mcg/5 Mcg Inhaler) 1 puff INH BID-RT [facility] Last Admin: 02/03/18 06:59 Dose: 1 puff Prednisone (Prednisone) 5 mg PO QAM-WM [facility] Last Admin: 02/03/18 08:30 Dose: 5 mg Saccharomyces Boulardii (Florastor) 250 mg PO DAILY [facility] Last Admin: 02/03/18 09:32 Dose: 250 mg Sertraline HCl (Zoloft) 100 mg PO DAILY [facility] Last Admin: 02/03/18 09:34 Dose: 100 mg Sodium Chloride (Flush - Normal Saline) 10 ml IVF Q12HR [facility] Last Admin: 02/03/18 09:34 Dose: 10 ml Sodium Chloride (Flush - Normal Saline) 10 ml IVF PRN PRN PRN Reason: Saline Flush Last Admin: 02/02/18 06:13 Dose: 10 ml Sotalol HCl (Betapace) 40 mg PO BID [facility] Last Admin: 02/03/18 09:33 Dose: Not Given
[2018-02-03] MEDS: Gabapentin 300 MG CAP PO SCH (21:08)
[2018-02-03] MEDS: Acetaminophen 325 MG TAB PO PRN (21:14)
[2018-02-04] MEDS: Mometasone/Formoterol 120 PUFF INHALER INH SCH (07:08)
[2018-02-04] MEDS: Gabapentin 100 MG CAP PO SCH (08:14)
[2018-02-04] MEDS: guaiFENesin ER 600 MG TAB PO SCH (08:15)
[2018-02-04] MEDS: Famotidine 20 MG TAB PO SCH (08:15)
[2018-02-04] MEDS: Saccharomyces boulardii 250 MG CAP PO SCH (08:16)
[2018-02-04] MEDS: predniSONE 5 MG TAB PO SCH (08:16)
[2018-02-04] MEDS: Sotalol HCl 80 MG TAB PO SCH (08:16)
[2018-02-04] MEDS: Docusate 100 MG CAP PO SCH (08:16)
[2018-02-04] MEDS: Bupropion 150 MG XL TAB PO SCH (08:19)
[2018-02-04] MEDS: HYDROcodone/Acetaminophen 10/325 mg Tablet PO PRN ×2 (08:19→14:41)
[2018-02-04] MEDS: Lorazepam 0.5 MG TAB PO PRN (09:15)
[2018-02-04 11:47] VITALS: BP 136/78; TEMP 97.6
--- NOTE | 2018-02-04 13:51 | PDOC.CTH ---
Cardiology Progress Note - Subjective The pt seen and examined. No overnight events. No cardiac complaints. She is on 2LNC at this moment. - Objective Vital Signs Temp Pulse Resp BP BP Pulse Ox 02/04/18 11:45 97.6 F 62 22 H 136/78 92 L 02/04/18 08:16 68 161/105 H 02/04/18 08:00 98.8 F 68 22 H 161/105 H 94 L 02/04/18 07:03 80 32 H 94 L 02/04/18 04:00 97.5 F L 70 16 170/78 H 92 L Weight 160 lb 3.394 oz 02/03/18 02/04/18 02/05/18 06:59 06:59 06:59 Intake Total 750 240 Output Total 350 Balance 400 240 - Physical Examination General/Neuro: alert & oriented x3 Neck: no JVD present Lungs: CTA Heart: RRR Abdomen: soft Extremities: other: (No edema) - Labs Result Diagrams: 02/02/18 04:26 02/03/18 04:23 Troponin/CKMB CK-MB (CK-2) 5.3 ng/mL (0-6.6) 01/29/18 13:07 Troponin I 0.746 ng/mL (< 0.028) H* 01/29/18 19:25 - Assessment/Plan 1. Hx of Rt lung cancer with hx of Partial pnrumonectomy and s/p Lung biopsy on 02/02/18 - the biopsy showed recurrent mucinous adenocardinoma. Managed by oncology service. 2. Atrial flutter with RVR - remains in SR with Sotalol 40mg BID. Eliquis will be resumed from tonight. 3. Chronic diastolic HF - stable; Ok to resume Lisinopril and Lasix if her VS is stable 4. Hyperlipidemia - No statin due to elevated LFT levels. Cont. to monitor 5. COPD - stable; managed by Livestock Dealer 6. Elevated LFT - improving. Not on Statin at this moment. MAR reviewed * The pt will tx to senior living today. The pt will f/u with Dr Maldonado' office after she is discharged. Review of Systems - Review of Systems Constitutional: reports: no symptoms reported EENTM: reports: no symptoms reported Respiratory: reports: no symptoms reported Cardiac (ROS): reports: no symptoms reported ABD/GI: reports: no symptoms reported : reports: no symptoms reported Musculoskeletal: reports: no symptoms reported
--- NOTE | 2018-02-05 00:13 | PRG ---
DATE OF SERVICE: 02/04/2018 SUBJECTIVE: Ms. Chely Lund is in no distress. OBJECTIVE: VITAL SIGNS: Have been stable. She is not wheezing. HEART: Regular rhythm. ABDOMEN: Soft. PLAN: FPC placement. Eventual treatment of her malignancy once the special markers are back. It is likely that this will be the same as her last tumor, which was not something that would be responsive to immunotherapy. Bronchoalveolar cell or mucinous adenocarcinoma historically in my e xperience has not been very responsive to conventional chemotherapy. She has very extensive disease. She is stable to go to a intermediate environment. Met with her daughter and answered all of he r questions.
--- NOTE | 2018-02-05 06:39 | DIS ---
DATE OF DISCHARGE: 02/04/2018 DISCHARGE DISPOSITION: alf facility. FOLLOWUP: Follow up with primary care physician, Dr. Cano in 1 week. Follow up with Cardiology, Dr. Maldonado and Dr. Dejesus in 2-3 weeks. ALLERGIES: CODEINE. DISCHARGE MEDICATIONS: Same as admission medication except for Lasix has been changed to p.r.n. BRIEF HOSPITAL COURSE: The patient is a 77-year-old female with atrial fibrillation on anticoagulati on and lung cancer in the past, presented to the emergency room with shortness of breath and generali zed weakness. Please refer to the history and physical by Dr. De Luna for further details. The patient was admitted to the telemetry unit with a diagnosis of acute on chronic diastolic heart f ailure with acute hypoxic respiratory failure. She showed good improvement with diuretics. She also developed intermittent tachycardia consistent with atrial flutter that spontaneously converted to si nus rhythm. Echocardiogram showed diastolic dysfunction with ejection fraction 55-60%. The patient was evaluated by Cardiology as well as Pulmonology. She underwent a CT-guided lung biopsy that was c onsistent with previous history of lung adenocarcinoma (mucinous type). Patient will follow up with Oncology as outpatient. She has been cleared by consultants for discharge. Also, note that the patient's initial troponins were 1.1, 0.7 on admission with a BNP of 964. She wa s also found to have significant elevated AST of 1365 and an ALT of 762. Right upper quadrant ultras ound showed gallbladder distention along with small amount of pericholecystic fluid. HIDA scan was r ecommended; however, the patient declined. She was placed on IV antibiotics that were later disconti nued per pulmonary recommendation. SIGNIFICANT LABORATORY DATA: 1. Creatinine on admission was 1.24, at discharge 0.63. 2. Troponin 1.1 with CK-MB 5.3 on admission. 3. No blood cultures were sent on admission prior to antibiotics. 4. MRI of the brain was negative for acute findings. It showed mild chronic ischemic white matter c hanges. Total time coordinating the discharge of this patient was 38 minutes. A copy of the list of medication was provided to the patient's daughter. FINAL DIAGNOSES: 1. Generalized weakness, multifactorial. 2. Acute hypoxic respiratory failure, resolved. 3. Acute on chronic diastolic heart failure, resolved. 4. Elevated troponins, probably secondary to demand ischemia. 5. Abnormal liver function tests, probably secondary to passive hepatic congestion. Cholecystitis l ess likely. 6. History of lung cancer, status post lobectomy in the past with recurrence. 7. History of pulmonary embolus and deep venous thrombosis in the past. Anticoagulation restarted a t the time of discharge after confirming with Oncology and Cardiology. 8. Brief atrial flutter with rapid ventricular response during this hospital stay that converted to sinus rhythm. 9. Anxiety and depression. 10. Hypertension. 11. Hypokalemia. 12. Chronic steroid use. 13. Deconditioning. 14. Mild acute kidney injury secondary to dehydration on admission/third spacing. 15. Mild anemia. 16. CODEINE and LYRICA allergy.
== END 2018-02-04 15:12 | DRG 291 ==
LOC: ERS 12:46 → 2NO 17:43 → T4-A 02-03 14:12
PROVIDERS: ADMIT Family Medicine; ATTEND Family Medicine
PROC: 0BBF3ZX Excision of Right Lower Lung Lobe, Percutaneous Approach, Diagnostic (ICD-10-PCS; principal; 2018-02-02)
DX: I11.0 Hypertensive heart disease with heart failure (principal); J96.01 Acute respiratory failure with hypoxia; J69.0 Pneumonitis due to inhalation of food and vomit; I24.8 Other forms of acute ischemic heart disease; I48.92 Unspecified atrial flutter; N17.9 Acute kidney failure, unspecified; C34.31 Malignant neoplasm of lower lobe, right bronchus or lung; K81.0 Acute cholecystitis; J44.1 Chronic obstructive pulmonary disease with (acute) exacerbation; I50.33 Acute on chronic diastolic (congestive) heart failure; Z79.01 Long term (current) use of anticoagulants; R53.1 Weakness; K76.1 Chronic passive congestion of liver; F32.9 Major depressive disorder, single episode, unspecified; F41.9 Anxiety disorder, unspecified; E87.6 Hypokalemia; Z79.52 Long term (current) use of systemic steroids; D64.9 Anemia, unspecified; E78.5 Hyperlipidemia, unspecified; Z86.711 Personal history of pulmonary embolism; R62.7 Adult failure to thrive; Z86.718 Personal history of other venous thrombosis and embolism; M19.90 Unspecified osteoarthritis, unspecified site; Z87.891 Personal history of nicotine dependence; I95.1 Orthostatic hypotension; I48.0 Paroxysmal atrial fibrillation; Z88.0 Allergy status to penicillin
CPT/HCPCS: 32405; 36415; 70553; 71045; 76700; 77012; 80048; 80053; 80061; 81003; 82550; 82553; 83690; 83735; 83880; 84484; 85025; 85610; 85730; 88305; 88312; 88333; 93005; 93306; 94640; 94664; 94760; 96361; 96365; 96375; A4216; G8978-GP-CK; G8979-GP-CJ; G8987-GO-CK; G8988-GO-CI; J1940; J2250; J2543; J2930; J3010; J3475; J7050; J7506; J7611; J7620; S0028